=== PATIENT | female | born 1935 | race Caucasian/White ===

== ENCOUNTER 2018-10-18 12:13 | Inpatient (IN) | payer MEDICARE, BC | END 2018-11-05 17:00 | disposition home or self-care (01) | LOC: ICU 2S 10-19 02:32 → SUR 3N 12:13 | PROC: 0DH60UZ Insertion of Feeding Device into Stomach, Open Approach (ICD-10-PCS; principal; 2018-10-18 00:27) | PROC: 0DJ08ZZ Inspection of Upper Intestinal Tract, Via Natural or Artificial Opening Endoscopic (ICD-10-PCS; 2018-10-18 00:27) | DX: K44.0 Diaphragmatic hernia with obstruction, without gangrene (principal); J96.00 Acute respiratory failure, unspecified whether with hypoxia or hypercapnia; B02.29 Other postherpetic nervous system involvement; K92.1 Melena; E87.6 Hypokalemia; R01.1 Cardiac murmur, unspecified; G89.29 Other chronic pain; I10 Essential (primary) hypertension; E78.5 Hyperlipidemia, unspecified; F10.10 Alcohol abuse, uncomplicated; K21.0 Gastro-esophageal reflux disease with esophagitis ==